=== PATIENT | male | born 1965 | race Caucasian/White ===

== ENCOUNTER 2024-02-22 09:11 | Outpatient (REF) | payer OTHER, SELFPAY ==
[2024-02-22 09:36] LABS: % Basophils 0.7 % (0-2); % Eosinophils 1.8 % (0-6); % Immature Granulocytes 0.4 % (0-0.5); % Lymphocytes 41.5 % (20.5-51.1); % Monocytes 6.7 % (1.7-9.3); % Neutrophils 48.9 % (42.2-75.2); Absolute Eosinophils 0.1 10^3/uL (0-0.7); Absolute Lymphocytes 2.4 10^3/uL (1.2-3.4); Absolute Monocytes 0.4 10^3/uL (0.1-0.6); Absolute Neutrophils 2.8 10^3/uL (1.4-6.5); Hematocrit 40.3 % (39.0-52.0); Hemoglobin 14.4 g/dL (13.0-18.0); Mean Corp Hgb Conc. 35.7 g/dL (33.0-37.0); Mean Corpuscular Hgb 33.6 pg (27.0-31.0); Mean Corpuscular Volume 94.2 fL (80.0-94.0); Mean Platelet Volume 9.3 fL (7.4-10.4); Nucleated Red Blood Cells % 0 % (-); Platelet Count 187 10^3/uL (130-400); Red Blood Cell Count 4.28 10^6/uL (4.70-6.10); Red Cell Dist. Width 11.6 % (11.5-14.5); White Blood Cell Count 5.7 10^3/uL (4.8-10.8)
[2024-02-22 09:40] VITALS: BP 135/75; BP_SYST 72
[2024-02-22 09:51] LABS: INR 0.93; PT 12.8 Sec (11.4-14.6)
[2024-02-22 11:45] VITALS: BP 148/78
[2024-02-22 12:00] VITALS: BP 150/73
[2024-02-22 12:15] VITALS: BP 147/73
[2024-02-22 12:45] VITALS: BP 139/72
== END 2024-02-22 13:10 | disposition home or self-care (01) ==
LOC: RADI 09:11
PROVIDERS: ATTENDING PHYSICIAN Student in an Organized Health Care Education/Training Program; FAMILY PHYSICIAN Family Medicine; OTHER PHYSICIAN Physician Assistant
DX: K76.0 Fatty (change of) liver, not elsewhere classified (principal); Z01.812 Encounter for preprocedural laboratory examination; Z01.818 Encounter for other preprocedural examination
CPT/HCPCS: 88307; 36415; 47000; 76942; 85025; 85610; 88313; 99152